=== PATIENT | male | born 1970 | race Caucasian/White ===

== ENCOUNTER 2022-12-30 07:08 | Outpatient (CLI) | payer BC, OTHER ==
[2022-12-30] MEDS ORDERED: Iopamidol 370 76% 100 ML VIAL ONE (10:52)
== END 2022-12-30 07:09 | disposition home or self-care (01) ==
LOC: CT 07:08
PROVIDERS: ATTEND Urology
DX: N28.89 Other specified disorders of kidney and ureter (principal); K44.9 Diaphragmatic hernia without obstruction or gangrene
CPT/HCPCS: 74178; Q9967

== ENCOUNTER 2023-07-28 12:15 | Outpatient (CLI) | payer BC, OTHER | END 2023-07-28 12:16 | disposition home or self-care (01) | LOC: BICMRI 12:15 | PROVIDERS: ATTEND Registered Nurse | DX: M25.512 Pain in left shoulder (principal); S43.432A Superior glenoid labrum lesion of left shoulder, initial encounter; M24.212 Disorder of ligament, left shoulder; M67.814 Other specified disorders of tendon, left shoulder ==